=== PATIENT | male | born 1965 | race Caucasian/White ===

== ENCOUNTER 2017-02-16 08:47 | Day surgery (SDC) | payer OTHER ==
[2017-02-16] VITALS (12 sets, daily range): BP systolic 124–138; BP diastolic 82–97; PULSE 71–85; RESP 12–18; Ht 198.1 cm; Wt 84.5 kg
[~2017-02-16] VITALS: Ht 198.1 cm; Wt 84.5 kg
[~2017-02-16 08:47] MED LIST: ALBU18HF INHALATION; ASPI81TA3 PO; BECL8.7A INHALATION; BUPIVACAINE 0.75% (MPF) 10 ML INJ ONE; CYCLOPENTOLATE 2% 2 ML OPH OPER SCH; EPINEPHrine 1 MG INJ ONE; GLYCOPYRROLATE 0.4 MG INJ ONE; HYDR-3671 PO; HYDR-906 PO; LIDOCAINE 1% (MPF) 10 ML INJ ONE; LIDOCAINE 2% (SDV) 5 ML INJ ONE; METO-448 PO; MOXIFLOXACIN 0.5% 3 ML OPH OPER ONE; NAPR-260 PO; NEOSTIGMINE 3 MG/3 ML SYRINGE ONE; NEPAFENAC 0.1% 3 ML OPH OPER SCH; NICO1PAT6 TD; PHENYLephrine 10% 5 ML OPH OPER SCH; ROCURONIUM 50 MG INJ ONE; SODIUM BICARBONATE (IV ADD) 50 ML ONE; TIMOLOL 0.5% 5 ML OPH ONE; TIMOLOL 0.5% 5 ML OPH RIGHT EYE ONE
[2017-02-16] MEDS ORDERED: LOSA50TA6 PO (09:35)
[2017-02-16] MEDS ORDERED: CLON-379 PO (09:35)
[2017-02-16] MEDS ORDERED: HYDR25TA6 PO (09:37)
--- NOTE | 2017-02-16 09:57 | HPN ---
Date/Time of Note Date/Time of Note DATE: 02/16/17 TIME: 09:57 Interval H&P Admission Note Pt. seen H&P reviewed: No system changes SHIVANI ARTHUR MD Feb 16, 2017 09:57
[2017-02-16] MEDS ORDERED: LIDOCAINE 100 MG SYRINGE ONE (10:04)
[2017-02-16] MEDS ORDERED: PROPOFOL 40 ML ONE (10:04)
[2017-02-16] MEDS ORDERED: MIDAZOLAM 1 MG/ML 2 ML INJ ONE (10:10)
[2017-02-16] MEDS ORDERED: FENTAnyl 50 MCG/ML VIAL ONE (10:21)
--- NOTE | 2017-02-16 11:12 | SIPON ---
Date/Time of Note Date/Time of Note DATE: 02/16/17 TIME: 11:08 Operative Report Preoperative Diagnosis cataract right eye Postoperative Diagnosis same Operation/Procedure Performed cataract extraction with lens im,plant Surgeon genaro signature line assistant bookkeeper none Anesthesia: general Estimated blood loss: none Transfusion Required none Specimen none Grafts/Implants lens implantnone Complications none SHIVANI ARTHUR MD Feb 16, 2017 11:12
--- NOTE | 2017-02-16 12:32 | OPR ---
DATE OF OPERATION: 02/16/2017 SURGEON: Shivani Clancy MD. ROTARY DRUM TANNER: None. PREOPERATIVE DIAGNOSIS: Senile nuclear sclerotic cataract, right eye. POSTOPERATIVE DIAGNOSIS: Senile nuclear sclerotic cataract, right eye. OPERATION: Kelman phacoemulsification with implantation of intraocular lens, right eye. DESCRIPTION OF PROCEDURE: Following standard preparation and draping of the patient, a lid speculum was placed for immobilization of the lids. A SuperBlade incision was made at the corneal limbal ju nction for access into the anterior chamber. Approximately 0.03 mL of nonpreserved 1% Xylocaine was instilled into the anterior chamber, and after approximately 5 to 10 seconds, this was replaced wit h Viscoat. A clear corneal incision was then made using the 3.2 mm keratome, following which an ant erior circular capsulorrhexis was made. The major portion of the lens cortex and nucleus were then dislocated from the capsular bag using hydrodissection. The KPE tip was introduced into the eye and controlling tumbling of the lens with a 2-handed technique, the major portion of the lens cortex an d nucleus was removed, maintaining the lens in the plane of the iris. The remaining cortical materi al was removed via the irrigating aspirating instrument. The capsular bag and the anterior chamber were now reformed using Viscoat. The proper power lens was then placed in the capsular bag. The vi scoelastic was then removed from the eye and the eye reformed with balanced salt solution. One 10-0 Vicryl suture was then used to ensure closure of the corneal incision. The eye was reformed to nor mal pressure using balanced salt solution. The eye and cul-de-sacs were now simply flooded with 5% Betadine solution. One drop of Vigamox and 1 drop of Betagan solution were instilled into the eye. A light pressure dressing was applied, and the patient was returned to the recovery room in satisfa ctory condition. Dictated By: SHIVANI DOVE/EMERITA Conf#: [id number] DID#: [id number]
== END 2017-02-16 12:52 | disposition home or self-care (01) ==
LOC: SDS 08:47
PROVIDERS: ATTEND Ophthalmology
DX: I10 Essential (primary) hypertension (principal)
CPT/HCPCS: 66984; J0171; J2001; J2250; J2710; J3010; V2632; Z7512; Z7610

== ENCOUNTER 2017-08-26 08:08 | Day surgery (SDC) | END 2017-08-26 14:30 | disposition home or self-care (01) ==

== ENCOUNTER 2017-10-05 21:53 | Observation (INO) | END 2017-10-06 18:00 | disposition home or self-care (01) ==

== ENCOUNTER 2017-11-09 23:32 | Emergency (ER) | END 2017-11-10 03:38 | disposition home or self-care (01) ==